=== PATIENT | female | born 1955 | race American Indian/Alaskan Native ===

== ENCOUNTER 2016-03-23 12:24 | Outpatient (CLI) | payer MEDICARE ==
--- NOTE | 2016-03-24 10:44 | PET Report ---
PET/CT:03/23/16 CLINICAL: Breast cancer restaging. RADIOPHARMACEUTICAL: 15.1mCi F18-FDG. COMPARISON: 09/30/15 PET/CT TECHNIQUE- Following intravenous injection of F-18 FDG and an approximately 60 minute uptake period, CT and PET images from the mid skull to the upper thighs were acquired with the patient in the fasted state. No contrast was administered. The CT protocol used for this PET CT study is designed for attenuation correction and anatomic localization of PET abnormalities. This clerical transcriber CT is not desired to produce and cannot replace, [id number] diagnostic CT scans with specific imaging protocols for different body parts and indications. Plasma glucose at the time of this test: 100g/dl. The standardized uptake values (SUV) are normalized to patient body weight and indicate the highest activity concentration (SUV max) in a given disease site. FINDINGS: Brain--Physiologic FDG uptake in the visualized regions of the brain. Neck--Physiologic FDG uptake . Chest--Physiologic FDG uptake in mediastinal blood pool and myocardium. Lungs--The previously described FDG avid right upper lobe lung nodule has increased slightly in size it measures 1.1 x 0.8 cm with SUV 5.8 compared to 9 x 6 mm with SUV 2.97. No other lung nodule. Pleura/pericardium--No abnormal uptake. Thoracic nodes--2 new contiguous FDG avid retrocaval pretracheal mediastinal lymph nodes. The largest measures 2.3 x 2.2 cm with SUV 12.9. Hepatobiliary--No abnormal uptake. Liver background SUV mean, as a reference for comparing FDG studies, is 4.3 compared to 3.5 on the last exam. No liver mass. Spleen--No abnormal uptake. Pancreas--No abnormal uptake. Adrenal Glands--No abnormal uptake. Kidneys/Ureters/Bladder--No abnormal uptake. Abdominopelvic Nodes--No abnormal uptake. Bowel/Peritoneum/Mesentery--No abnormal uptake. Pelvic organs--No abnormal uptake. Bones/Soft Tissues--No abnormal uptake. Stable sclerotic lesions of the right iliac bone and left ischium. No new bone lesions. IMPRESSION- Progressive disease size and FDG uptake in a single 1.1 cm right upper lobe lung nodule and new FDG avid mediastinal lymphadenopathy. Stable skeletal metastasis. No evidence of hepatic or metastasis.
== END 2016-03-23 12:25 | disposition home or self-care (01) ==
LOC: PET 12:24
PROVIDERS: ATTEND Nurse Practitioner
DX: C50.911 Malignant neoplasm of unspecified site of right female breast (principal); R91.1 Solitary pulmonary nodule
CPT/HCPCS: 78815; 82962; A9552

== ENCOUNTER 2016-06-22 11:38 | Outpatient (CLI) | payer MEDICARE ==
--- NOTE | 2016-06-23 09:13 | PET Report ---
PET SB TO MT SUBSEQUENT: HISTORY: Restaging of right breast cancer, monitored tumor response to therapy. TECHNIQUE: 15.3 millicuries F-18 FDG was administered intravenously. Noncontrast CT images and PET images were obtained from the skull base to the proximal thighs. Fused images were reviewed on a workstation. The patient's blood glucose level measured 114. COMPARISON: 03/23/16. FINDINGS: BRAIN: physiologic FDG uptake in the imaged brain. NECK: physiologic FDG uptake. MEDIASTINUM: The previously described enlarged pretracheal lymph node has decreased from 2.3 cm to 1.0 cm. Max SUV has decreased from 12.9 to 3.4. No new hypermetabolic lymph nodes in the chest. LUNGS: physiologic FDG uptake. The previously described 11 mm right upper lobe nodule has resolved. No pulmonary nodule or mass on today's exam. PLEURA/PERICARDIUM: physiologic FDG uptake. HEPATOBILIARY: physiologic FDG uptake. Mean liver SUV measures 3.0. PANCREAS: physiologic FDG uptake. SPLEEN: physiologic FDG uptake. ADRENAL GLANDS: physiologic FDG uptake. KIDNEYS/RENAL COLLECTING SYSTEMS: physiologic FDG uptake. BOWEL/MESENTERY: physiologic FDG uptake. PELVIC VISCERA: physiologic FDG uptake. ABDOMINAL/PELVIC LYMPH NODES: physiologic FDG uptake. MUSCULOSKELETAL: physiologic FDG uptake. Stable sclerotic lesions of the right iliac bone and left ischium. IMPRESSION: A positive response to therapy is demonstrated since 03/23/16 exam. The 11 millimeter right upper lobe nodule has resolved. The pretracheal lymph node is now normal in size with decreased SUV from 12.9 to 3.4. Stable hypometabolic skeletal metastases. No new areas of disease are identified.
== END 2016-06-22 11:39 | disposition home or self-care (01) ==
LOC: PET 11:38
PROVIDERS: ATTEND Internal Medicine Hematology & Oncology
DX: C50.911 Malignant neoplasm of unspecified site of right female breast (principal); R91.1 Solitary pulmonary nodule
CPT/HCPCS: 78815; A9552

== ENCOUNTER 2016-08-24 12:24 | Outpatient (CLI) | payer MEDICARE ==
--- NOTE | 2016-08-25 07:25 | Vascular Lab Report ---
RIGHT UPPER EXTREMITY VENOUS DUPLEX: REASON FOR EXAM: Swelling of the right upper extremity COMMENTS ON THE RIGHT: All arm veins visualized are freely compressible without evidence of internal echogenicity. The subclavian and internal jugular veins are free of thrombus. Flow is spontaneous and phasic throughout. COMMENTS ON THE LEFT: The subclavian and internal jugular veins are free of thrombus. IMPRESSION: No evidence of acute or chronic deep venous thrombosis in the right upper extremity.
== END 2016-08-24 12:25 | disposition home or self-care (01) ==
LOC: VAS 12:24
PROVIDERS: ATTEND Internal Medicine Hematology & Oncology
DX: R60.9 Edema, unspecified (principal); C50.911 Malignant neoplasm of unspecified site of right female breast; R91.1 Solitary pulmonary nodule

== ENCOUNTER 2016-09-14 14:09 | Outpatient (CLI) | payer MEDICARE ==
--- NOTE | 2016-09-15 12:08 | PET Report ---
PET SB TO MT SUBSEQUENT: HISTORY: Restaging of breast cancer. TECHNIQUE: 14.6 millicuries F-18 FDG was administered intravenously. Noncontrast CT images and PET images were obtained from the skull base to the proximal thighs. Fused images were reviewed on a workstation. The patient's blood glucose level measured 84. COMPARISON: 06/22/16. FINDINGS: BRAIN: physiologic FDG uptake in the imaged brain. NECK: physiologic FDG uptake. MEDIASTINUM: Small paratracheal lymph node is unchanged measuring approximately 1 cm. Max SUV has increased from 3.4 to 4.1. No new hypermetabolic lymph nodes. LUNGS: physiologic FDG uptake. PLEURA/PERICARDIUM: physiologic FDG uptake. THORACIC LYMPH NODES: physiologic FDG uptake. HEPATOBILIARY: physiologic FDG uptake. Mean liver SUV measures 3.6. PANCREAS: physiologic FDG uptake. SPLEEN: physiologic FDG uptake. ADRENAL GLANDS: physiologic FDG uptake. KIDNEYS/RENAL COLLECTING SYSTEMS: physiologic FDG uptake. BOWEL/MESENTERY: physiologic FDG uptake. PELVIC VISCERA: physiologic FDG uptake. ABDOMINAL/PELVIC LYMPH NODES: physiologic FDG uptake. MUSCULOSKELETAL: Stable sclerosis of the right iliac bone and left ischium. These remain hypometabolic. IMPRESSION: Essentially no change since 06/22/16 exam. A 1 cm paratracheal lymph node is mildly hypermetabolic with max SUV increasing from 3.4 on the previous exam to 4.1 on today's exam. No other areas of disease are appreciated. Stable sclerotic skeletal lesions.
== END 2016-09-14 14:10 | disposition home or self-care (01) ==
LOC: PET 14:09
PROVIDERS: ATTEND Internal Medicine Hematology & Oncology
DX: C50.911 Malignant neoplasm of unspecified site of right female breast (principal); R91.1 Solitary pulmonary nodule; M89.9 Disorder of bone, unspecified; I10 Essential (primary) hypertension; E78.00 Pure hypercholesterolemia, unspecified; D64.9 Anemia, unspecified
CPT/HCPCS: 78815; 82962; A9552

== ENCOUNTER 2017-01-11 14:17 | Outpatient (CLI) | payer MEDICARE ==
--- NOTE | 2017-01-12 13:21 | PET Report ---
PET SB TO MT SUBSEQUENT: HISTORY: Restaging of breast cancer. TECHNIQUE: 14.5 millicuries F-18 FDG was administered intravenously. Noncontrast CT images and PET images were obtained from the skull base to the proximal thighs. Fused images were reviewed on a workstation. The patient's blood glucose level measured 96. COMPARISON: 09/14/16. FINDINGS: BRAIN: physiologic FDG uptake in the imaged brain. NECK: physiologic FDG uptake. MEDIASTINUM: Subcentimeter paratracheal lymph node is unchanged in size measuring approximately 1 cm. Max SUV is unchanged measuring 4.1. No new mediastinal lymph nodes. LUNGS: physiologic FDG uptake. PLEURA/PERICARDIUM: physiologic FDG uptake. THORACIC LYMPH NODES: physiologic FDG uptake. HEPATOBILIARY: physiologic FDG uptake. Mean liver SUV measures 4.0. PANCREAS: physiologic FDG uptake. SPLEEN: physiologic FDG uptake. ADRENAL GLANDS: physiologic FDG uptake. KIDNEYS/RENAL COLLECTING SYSTEMS: physiologic FDG uptake. BOWEL/MESENTERY: physiologic FDG uptake. PELVIC VISCERA: physiologic FDG uptake. ABDOMINAL/PELVIC LYMPH NODES: physiologic FDG uptake. MUSCULOSKELETAL: Stable sclerosis of the right iliac bone and left ischium. These bony lesions remain hypometabolic. No new sclerotic bony lesions are appreciated. IMPRESSION: Stable findings since 09/14/16. A slightly suspicious paratracheal lymph node is unchanged in size and metabolic activity as outlined above. Stable sclerotic bony lesions in the pelvis. No new areas of disease are appreciated.
== END 2017-01-11 14:18 | disposition home or self-care (01) ==
LOC: PET 14:17
PROVIDERS: ATTEND Internal Medicine Hematology & Oncology
DX: C50.911 Malignant neoplasm of unspecified site of right female breast (principal); R91.1 Solitary pulmonary nodule; M89.9 Disorder of bone, unspecified; Z79.899 Other long term (current) drug therapy
CPT/HCPCS: 78815; 82962; A9552

== ENCOUNTER 2017-05-10 14:02 | Outpatient (CLI) | payer MEDICARE ==
--- NOTE | 2017-05-14 07:56 | PET Report ---
PET SB TO MT SUBSEQUENT: HISTORY: Right breast cancer. TECHNIQUE: 14.9 millicuries F-18 FDG was administered intravenously. Noncontrast CT images and PET images were obtained from the skull base to the proximal thighs. Fused images were reviewed on a workstation. The patient's blood glucose level measured 111. COMPARISON: 01/11/17. FINDINGS: BRAIN: physiologic FDG uptake in the imaged brain. NECK: physiologic FDG uptake. CHEST WALL: No recurrent mass or adenopathy. Surgical clips in the medial right breast and right axilla are noted. Physiologic FDG uptake. MEDIASTINUM: A precarinal lymph node measuring 1.3 cm appears stable in size but demonstrates minimal increase in max SUV from 4.1 to 4.4. Approximately 3 cm superior to this lymph node, a second subcentimeter lymph node just anterior to the trachea now demonstrates mild hypermetabolic activity with SUV max measuring 4.0. This appears to be new since the previous exam. No additional abnormal hypermetabolic activity identified in the mediastinum. LUNGS: physiologic FDG uptake. PLEURA/PERICARDIUM: physiologic FDG uptake. THORACIC LYMPH NODES: physiologic FDG uptake. HEPATOBILIARY: physiologic FDG uptake. Mean liver SUV measures 4.0. PANCREAS: physiologic FDG uptake. SPLEEN: physiologic FDG uptake. ADRENAL GLANDS: physiologic FDG uptake. KIDNEYS/RENAL COLLECTING SYSTEMS: physiologic FDG uptake. BOWEL/MESENTERY: physiologic FDG uptake. PELVIC VISCERA: physiologic FDG uptake. ABDOMINAL/PELVIC LYMPH NODES: physiologic FDG uptake. MUSCULOSKELETAL: Subtle sclerotic bony lesions involving the right pedicle of L3, right iliac bone, and left ischium are unchanged and remain hypermetabolic. No new bony lesions. IMPRESSION: Perhaps minimal progression of disease is suggested. A precarinal mediastinal lymph node demonstrates minimal increase in hypermetabolic activity. There appears to be a new tiny paratracheal hypermetabolic lymph node on today's exam. See above. No visceral mass is identified. Stable hypometabolic/sclerotic bony lesions..
== END 2017-05-10 14:03 | disposition home or self-care (01) ==
LOC: PET 14:02
PROVIDERS: ATTEND Internal Medicine Hematology & Oncology
DX: C50.911 Malignant neoplasm of unspecified site of right female breast (principal); M89.9 Disorder of bone, unspecified; R91.1 Solitary pulmonary nodule; I10 Essential (primary) hypertension; E78.00 Pure hypercholesterolemia, unspecified; D64.9 Anemia, unspecified; Z79.899 Other long term (current) drug therapy
CPT/HCPCS: 78815; 82962; A9552